=== PATIENT | female | born 1965 | race Caucasian/White ===

== ENCOUNTER 2021-09-13 09:43 | Outpatient (CLI) | payer OTHER, SELFPAY ==
--- NOTE | ~2021-09-13 | XR_ITS ---
EXAMINATION: XR finger 1st RT min 2V DATE: 09/13/2021 10:02 INDICATION: Closed fracture of right hand first distal phalanx. Right thumb pain. TECHNIQUE: 3 views of right thumb were obtained. COMPARISON: None. FINDINGS: There is a transverse fracture of metaphysis of first distal phalanx in near-anatomic align ment. 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 IMPRESSION: 1. Transverse fracture of metaphysis of first distal phalanx in near-anatomic alignment. Reviewed, dictated and finalized at location A. IMPRESSION: 1. Transverse fracture of metaphysis of first distal phalanx in near-anatomic a lignment.
== END 2021-09-13 09:44 | disposition home or self-care (01) ==
LOC: ANHIMG 09:46
PROVIDERS: Visit Provider Plastic Surgery
DX: S62.524A Nondisplaced fracture of distal phalanx of right thumb, initial encounter for closed fracture (principal)
CPT/HCPCS: 73140